=== PATIENT | female | born 1945 | race Caucasian/White ===

== ENCOUNTER 2022-06-21 10:57 | Inpatient (IN) | payer MEDICARE ==
[~2022-06-21] VITALS: Ht 167.6 cm; Wt 109.0 kg
[2022-06-21 11:37] LABS: BASO % 0.5 % (0.0-2.0); EOS # 0.1 K/mm3 (0.0-0.7); EOS % 0.7 % (0.0-4.0); GRAN # 7.5 K/mm3 (1.4-6.5); HEMATOCRIT 37.7 % (37.0-47.0); LYMPH # 0.7 K/mm3 (1.2-3.4); LYMPH % 7.8 % (20.0-51.0); MEAN CELL VOLUME 72 fl (80.0-100.0); MEAN CORPUSCULAR HEMOGLOBIN 21 pg (27-31); MEAN CORPUSCULAR HGB CONC 29 g/dl (33.0-37.0); MEAN PLATELET VOLUME 9.7 fl (7.4-10.4); MONO # 0.5 K/mm3 (0.1-0.6); MONO % 5.8 % (1.7-9.3); PLATELET COUNT 345 K/mm3 (130-400); RED BLOOD COUNT 5.25 M/mm3 (4.10-5.30); REDCELL DISTRIBUTION WIDTH-CV 23.9 % (11.5-14.5)
[2022-06-21 11:54] LABS: ALBUMIN 3.5 gm/dL (3.4-4.8); BILIRUBIN,TOTAL 0.4 mg/dL (0.2-1.2); CALCIUM 8.9 mg/dL (8.4-10.2); CREATININE, serum 0.98 mg/dL (0.57-1.11); POTASSIUM 3.6 mmol/L (3.5-4.5); TOTAL PROTEIN 6.7 gm/dL (6.2-8.1)
[2022-06-21 12:01] LABS: TROPONIN-I 2.607 ng/mL (0.00-0.033)
[2022-06-21 12:47] LABS: INR 1.2 (0.8-3.0); PROTHROMBIN TIME 13.3 SECONDS (9.7-12.8)
[2022-06-21 15:40] LABS: COLLECTION METHOD CATHETER
[2022-06-21 15:54] LABS: URINE APPEARANCE Clear (CLEAR/HAZY); URINE COLOR Yellow (YELLOW)
[2022-06-21 15:55] LABS: MUCOUS Present (NOT PRESENT); SQUAMOUS EPITHELIAL 0-2 /hpf (0-10); URINE BACTERIA None Seen /hpf (NONE SEEN); URINE BLOOD TRACE-INTACT (NEGATIVE); URINE GLUCOSE Negative (NEGATIVE); URINE KETONE Negative (NEGATIVE); URINE NITRATE Negative (NEGATIVE); URINE PROTEIN(semi-quant) 1+ (NEGATIVE); URINE RBC None Seen /hpf (0-2); URINE UROBILINOGEN 0.2 E.U/dL (0.2-1.0)
[2022-06-21 16:53] VITALS: BP 177/67; PULSE 83; TEMP 98.9
--- NOTE | 2022-06-21 17:02 | NUR ---
CALL PLACED TO FREDDY BURGESS IN ATTEMPT TO GET MORE PATIENT AND MED REC COMPLETE. NO ANSWER, VOICEMAIL LEFT FOR CALL BACK.
--- NOTE | 2022-06-21 17:48 | NUR ---
PATIENT ABLE TO SAY "THANK YOU", AND "WHAT IS THAT" WITH NO DIFFICULTY. HOWEVER WHEN TRYING TO SAY A FULL SENTENCE ONLY FEW WORDS SOUND NORMAL. UNABLE TO UNDERSTAND WHAT SHE IS STATING. SHE POINTS TO WHAT SHE IS SPEAKING OF, WHICH HELPS. HOWEVER MOST OF TIME I AM UNABLE TO UNDERSTAND. WHEN ASKED IF SHE KNOWS WHERE SHE IS, OR HEIGHT AND WEIGHT, SHE STATED "[place]", OR "OK". HOWEVER PATIENT ABLE TO FOLLOW COMMANDS.
--- NOTE | 2022-06-21 17:48 | NUR ---
PATIENT ABLE TO SWALLOW PILLS WITH NECTOR THICK LIQUID WITH NO DIFFICULTIES. NO COUGHING.
[2022-06-21 19:30] VITALS: BP 154/65; PULSE 80; TEMP 98.1
[2022-06-21 23:37] VITALS: BP 155/55; PULSE 61; TEMP 97.8
[2022-06-22 04:05] VITALS: BP 154/68; PULSE 68; TEMP 97.6
[2022-06-22 06:51] LABS: BASO # 0.1 K/mm3 (0.0-0.2); BASO % 0.6 % (0.0-2.0); EOS # 0.1 K/mm3 (0.0-0.7); EOS % 1.6 % (0.0-4.0); GRAN % 69.2 % (42.2-75.2); HEMATOCRIT 37.3 % (37.0-47.0); HEMOGLOBIN 10.8 g/dl (12.5-16.0); LYMPH # 1.6 K/mm3 (1.2-3.4); LYMPH % 18.1 % (20.0-51.0); MEAN CELL VOLUME 71 fl (80.0-100.0); MEAN CORPUSCULAR HEMOGLOBIN 20 pg (27-31); MEAN CORPUSCULAR HGB CONC 29 g/dl (33.0-37.0); MEAN PLATELET VOLUME 9.6 fl (7.4-10.4); MONO # 0.9 K/mm3 (0.1-0.6); PLATELET COUNT 387 K/mm3 (130-400); RED BLOOD COUNT 5.29 M/mm3 (4.10-5.30); REDCELL DISTRIBUTION WIDTH-CV 24.2 % (11.5-14.5)
[2022-06-22 07:28] VITALS: BP 142/76; PULSE 72; TEMP 98.3
[2022-06-22 07:32] LABS: ANION GAP 12 mmol/L (7-16); BLOOD UREA NITROGEN 24 mg/dL (10-20); CALCIUM 9.2 mg/dL (8.4-10.2); CARBON DIOXIDE 23 mmol/L (23-31); CHLORIDE 104 mmol/L (98-107); CHOLESTEROL 160 mg/dL (0-199); CHOLESTEROL RISK RATIO 3.2; CREATININE, serum 0.98 mg/dL (0.57-1.11); GLUCOSE 216 mg/dL (70-99); HDL CHOLESTEROL 50 mg/dL (40-60); LDL CHOLESTEROL 94 mg/dL; POTASSIUM 3.3 mmol/L (3.5-4.5); SODIUM 139 mmol/L (136-145); TRIGLYCERIDE 79 mg/dL (0-149)
--- NOTE | 2022-06-22 08:15 | NUR ---
ATTEMPTED TO HAVE PATIENT HER ANSWERS. SHE ATTEMPTED, HOWEVER NO WORD WRITTEN. ABLE TO ANSWER A FEW QUESTIONS WITH YES AND NO. HOWEVER DOESNT ALWAYS SEEM TO UNDERSTAND QUESTIONS ASKED. OBEYS COMMANDS.
--- NOTE | 2022-06-22 09:18 | NUR ---
PATIENTS DAUGHTER FREDDY CALLD FOR AN UPDATE ON PATIENT STATUS. SHE ASKED IF SHE DOESNT MAKE IT IN TIME FOR WHEN THE PHSYCIIAN ROUNDS THAT THE PHSYICIAN CALL AND UPDATE HER. WILL PASS ON IF NECESSARY.
--- NOTE | 2022-06-22 10:35 | NUR ---
20G IV placed to left forearm x1 attempt by this nurse. Tolerated out.
[2022-06-22 10:50] LABS: PARTIAL THROMBOPLASTIN TIME 35.9 SECONDS (26.0-37.0)
[2022-06-22 11:27] VITALS: BP 121/53; BP 160/63; PULSE 60; PULSE 65; TEMP 97.8; TEMP 98.6
--- NOTE | 2022-06-22 13:30 | NUR ---
PATIENT TOLERATED MECH SOFT DIET WITH NO ISSUES. DRINKING PO IN TAKE WELL WITH AND WITHOUT NECTOR THICK.
[2022-06-22] MEDS ORDERED: ZANAFLEX2 MG PO (13:34)
[2022-06-22] MEDS ORDERED: NEURONTIN100 MG/CAP PO (13:38)
[2022-06-22] MEDS ORDERED: LASIX 20MG TABL20 MG PO (13:39)
[2022-06-22] MEDS ORDERED: VITAMINC1000TA PO (13:40)
[2022-06-22] MEDS ORDERED: K-TAB20 PO (13:41)
[2022-06-22] MEDS ORDERED: B-121000 MCG PO (13:41)
[2022-06-22] MEDS ORDERED: COZAAR100 MG PO (13:42)
[2022-06-22] MEDS ORDERED: ASPIRIN 81M81 MG/TA2 PO (13:46)
[2022-06-22] MEDS ORDERED: VITAMIN D31000 IU PO (13:47)
[2022-06-22] MEDS ORDERED: NOVOLIN 70/30 710 ML SQ ×2 (14:03→14:04)
[2022-06-22 16:01] VITALS: BP 152/67; PULSE 67; TEMP 99.2
--- NOTE | 2022-06-22 16:58 | NUR ---
CALL RECIEVED FROM [facility] OF [facility] HEPARIN XA OF 1.64. PER PROTOCOL HEPARIN DRIP STOPPED. REDRAW ORDERED FOR 1900, 2 HOURS AFTER STOPPING DRIP ID PROTOCOL.
--- NOTE | 2022-06-22 18:18 | NUR ---
PATIENTS FAMILY REQUESTING NEOSPORIN FOR PATIENTS R PALM. ABRASIAN TO RIGHT PALM SEEN THIS MORNING, HOWEVER PATIENT ACCIDENTLY OPENED IT, TINY AREA OF BLOOD ON PALM. BANDAID APPLIED. DR GARCIA INFORMED ME SHE WAS WITH JOSE PERRIN FOR ORDERS. CALL PLACED TO FITNESS WORKER, SHE STATED THAT HER OR NIGHT HOUSE SUP WILL BRING AFTER SHIFT CHANGE.
[2022-06-22 19:21] VITALS: BP 155/65; PULSE 97; TEMP 97.7
--- NOTE | 2022-06-22 20:59 | NUR ---
BEDSIDE SHIFT REPORT RECEIVED FROM RN. PT CURRENTLY RESTING IN BED. NO C/O PAIN OR DISCOMFORT AT THIS TIME. LINES RUNNING ACCORDING TO REPORT (SEE DRIP FLOW SHEET). VSS, NO ACUTE NEURO CHANGES NOTED AT THIS TIME
[2022-06-22 23:34] VITALS: BP 146/61; PULSE 74; TEMP 97.8
[2022-06-23 04:01] VITALS: BP 151/65; PULSE 68; TEMP 98.6
[2022-06-23 06:23] LABS: HEMOGLOBIN 10.3 g/dl (12.5-16.0); MEAN CELL VOLUME 70 fl (80.0-100.0); MEAN CORPUSCULAR HEMOGLOBIN 20 pg (27-31); MEAN CORPUSCULAR HGB CONC 29 g/dl (33.0-37.0); MEAN PLATELET VOLUME 9.3 fl (7.4-10.4); PLATELET COUNT 330 K/mm3 (130-400); RED BLOOD COUNT 5.08 M/mm3 (4.10-5.30); REDCELL DISTRIBUTION WIDTH-CV 23.6 % (11.5-14.5)
[2022-06-23 06:29] LABS: HEMATOCRIT 35.4 % (37.0-47.0)
[2022-06-23 06:41] LABS: CALCIUM 8.9 mg/dL (8.4-10.2); CREATININE, serum 1.01 mg/dL (0.57-1.11); MAGNESIUM 2.3 mg/dL (1.6-2.6); POTASSIUM 3.9 mmol/L (3.5-4.5)
[2022-06-23 06:59] LABS: TROPONIN-I 2.22 ng/mL (0.00-0.033)
--- NOTE | 2022-06-23 07:25 | NUR ---
Critical troponin called to Dr. Quinn, who read back the results.
[2022-06-23 07:31] VITALS: BP 144/52; PULSE 67; TEMP 99.5
[2022-06-23 11:33] VITALS: BP 145/54; PULSE 64; TEMP 98.7
[2022-06-23 15:26] VITALS: BP 137/42; PULSE 56; TEMP 99
--- NOTE | 2022-06-23 19:26 | NUR ---
Patient has had an ok day. Shift assessment preformed. Scheduled medications given. Heparin gtt running as ordered. First dose of Sotalol given. This RN educated patient and family on new medications. Fall precautions placed on patient due to possible dizziness from new administration. Patient has expressive aphasia, but remainder of Neuro Check remains WNL. Daughter and grandaughter voiced their concerns to this RN, stating "We do not feel as if our mother is getting the care she needs. We don't think anyone is going in there except to pass medications. There is water all over the floor and poop smeared all over the toilet." This RN addressed their concerns, and oncoming nurse is aware. Patient is currently resting in bed. Fall precautions in place. Family at the bedside. Patient and family deny an further needs at thistime.
[2022-06-23 20:02] VITALS: BP 124/51; PULSE 58; TEMP 98.5
--- NOTE | 2022-06-23 22:20 | NUR ---
2025 PATIENT IS RESTING IN BED WITH FAMILY AT BEDSIDE. THIS NURSE ASSESSES PATIENT BRIEF AND MAKES READJUSTMENT AT THIS TIME. PATIENT FAMILY REQUEST A COMMUNICATION BOARD. PATIENT FAMILY STATES 'SHE IS TRYING TO TELL US TO DO SOMETHING BEFORE IT'S TOO LATE AND SHE IS UNABLE TO.' PATIENT FAMILY IS GIVEN A LAMINATED SHEET WITH EXPO MARKER. 2044 PATIENT FAMILY EXIT PATIENT ROOM AND INFORM THIS NURSE THE COMMUNICATION SHEET HELPED. PATIENT FAMILY EXPRESSES APPRECIATION FOR NURSE ATTENTIVENESS.
[2022-06-23 23:35] VITALS: BP 129/48; PULSE 57; TEMP 99.2
[2022-06-24 03:11] VITALS: BP 145/62; PULSE 74; TEMP 98.7
--- NOTE | 2022-06-24 05:33 | NUR ---
PATIENT SPEECH IMPROVING EVIDENCED BY PATIENT TALKING IN FULL SENTENCES. PATIENT HAS HAD UNEVENTFUL NIGHT AND DENIES NEEDS. PATIENT DOES EXPRESS WE WERE NOT BOTHERING HER SO MUCH SHE IS TRYING TO SLEEP. CALL LIGHT REMAINS IN REACH AND PATIENT IS APPROPRIATELY CALLING WITH NEEDS AND OR CONCERNS
[2022-06-24 06:46] LABS: MEAN CELL VOLUME 70 fl (80.0-100.0); MEAN CORPUSCULAR HGB CONC 29 g/dl (33.0-37.0); MEAN PLATELET VOLUME 10.6 fl (7.4-10.4); PLATELET COUNT 325 K/mm3 (130-400); RED BLOOD COUNT 4.79 M/mm3 (4.10-5.30); REDCELL DISTRIBUTION WIDTH-CV 23.6 % (11.5-14.5)
[2022-06-24 06:52] LABS: HEMATOCRIT 33.7 % (37.0-47.0); HEMOGLOBIN 9.9 g/dl (12.5-16.0); MEAN CORPUSCULAR HEMOGLOBIN 21 pg (27-31)
[2022-06-24 08:08] VITALS: BP 135/43; PULSE 60; TEMP 98.1
--- NOTE | 2022-06-24 08:51 | NUR ---
Pt assessment complete. Pt is sitting up on the side of the bed upon entry, she is alert but unable to answer orientation questions, she continues to answer with her name despite the question. When asked where she is she states "inside", and yes to her home. Pt becomes quite frustrated with attempts to answer questions, when empathy is given she states "no it's not alright". No pain at this time. Pt assisted in ambulating to the restroom with SBA and brushing her teeth. No needs at this time. Call light within reach and bed alarm in place.
[2022-06-24 11:42] VITALS: BP 127/40; PULSE 46; TEMP 98.1
--- NOTE | 2022-06-24 15:38 | NUR ---
SW met with patient to complete intake and discuss discharge plan. Patient reports that she lives in [facility] at home alone. She has been independent with her ADL's and does not utilize any DME to assist with mobility. Patient states that she cannot remember the name of her PCP and that i need to call her daughter for that information. She is unable to tell me where she gets her prescriptions from. Patient is unsure if she has a DPOA-HC.
[2022-06-24 17:13] VITALS: BP 119/48; PULSE 48; TEMP 98.4
--- NOTE | 2022-06-24 18:08 | NUR ---
Pt continued to have word salad through the day. Occasionally would answer questions appropriately but struggled with word finding. Able to make some of her needs known. Advanced to a general diet with regular liquids per ST. Pt continent of urine and bowel, refused shower today and said maybe tomorrow. Ambulated with assistance of SBA. No needs at this time. Heparin infusing per protocol.
[2022-06-24 19:47] VITALS: BP 132/50; PULSE 60; TEMP 97.4
--- NOTE | 2022-06-24 21:40 | NUR ---
Patient assessed around 2014. Denied having pain and discomfort. Peripheral IV to left forearm with Heparin drip running at 1850 units/hr. Recheck HepXa at 0500 per orders. Patient able to have conversation, able to understanding speach. When asking specific questions to patient, patient seems to get stuck on the last questions and have difficulty answering questions. Patient denies having any questions, needs, or concerns at time of assessment. High fall risk precautions in place, and bed alarm put on. Patient got upset asking why she needed an alarm on when staff help her to the bathroom. Explained to patient that sometimes people wake up confused and forget to call for assistance, and we do not want her to fall. Patient asked if alarm could be turned off because she doesn't wake up confused. Explained to patient that she is a high fall risk and that alarm had to be for her safety and to protect staff, as we need to follow those policies and procedures. Voiced understanding and allowed alarm to stay on. Patient in bed with call light within reach.
[2022-06-24 23:17] VITALS: BP 137/48; PULSE 55; TEMP 99.2
[2022-06-25 04:18] VITALS: BP 135/55; PULSE 51; TEMP 98.5
--- NOTE | 2022-06-25 05:52 | NUR ---
Patient has denied pain and discomfort this shift. Did seem to get frustrated this morning with not being able to speak clearly. Patient was trying to say that she wanted a drink but kept saying eat. This nurse held up a drink in one had and food in another and asked patient to point to one depending on if she wanted food or drink. Pointed to drink. Was then able to figure out what she wanted. This nurse thanked patient for being patient, and gave words of encouragement for doing a good job and not giving up on trying to make needs known. Says no when asked if she needed anything else. In bed with call light within reach. High fall risk precautions in place. Continues on Heparin drip per orders.
[2022-06-25 06:27] LABS: MEAN CELL VOLUME 73 fl (80.0-100.0); MEAN CORPUSCULAR HGB CONC 30 g/dl (33.0-37.0); MEAN PLATELET VOLUME 10.1 fl (7.4-10.4); PLATELET COUNT 324 K/mm3 (130-400); RED BLOOD COUNT 4.58 M/mm3 (4.10-5.30); REDCELL DISTRIBUTION WIDTH-CV 23.4 % (11.5-14.5)
[2022-06-25 06:31] LABS: HEMATOCRIT 33.2 % (37.0-47.0); HEMOGLOBIN 9.8 g/dl (12.5-16.0); MEAN CORPUSCULAR HEMOGLOBIN 21 pg (27-31)
[2022-06-25 06:45] LABS: CALCIUM 9.2 mg/dL (8.4-10.2); CREATININE, serum 1.36 mg/dL (0.57-1.11); POTASSIUM 3.8 mmol/L (3.5-4.5)
[2022-06-25 07:24] VITALS: BP 145/62; PULSE 50; TEMP 97.9
[2022-06-25 12:01] VITALS: BP 142/39; PULSE 50; TEMP 97.7
[2022-06-25 16:05] LABS: HEMOGLOBIN 10.3 g/dl (12.5-16.0); MEAN CELL VOLUME 71 fl (80.0-100.0); MEAN CORPUSCULAR HEMOGLOBIN 21 pg (27-31); MEAN CORPUSCULAR HGB CONC 29 g/dl (33.0-37.0); PLATELET COUNT 365 K/mm3 (130-400); RED BLOOD COUNT 5.02 M/mm3 (4.10-5.30); REDCELL DISTRIBUTION WIDTH-CV 23.6 % (11.5-14.5)
[2022-06-25 16:07] LABS: HEMATOCRIT 35.4 % (37.0-47.0)
[2022-06-25 16:16] VITALS: BP 135/50; PULSE 58; TEMP 97.5
--- NOTE | 2022-06-25 16:22 | NUR ---
Television Specialist met with patient's daughter, Lisa and granddaughter to discuss discharge planning. They are agreeable to post acute rehab. SW provided Medicare.gov list of SNF options. Preferences are [facility]) [facility] and 3) [facility]. TREMAINE faxed off clinicals to [facility] for authorization. [facility] declined referral and [facility] advised they will follow as patient had some difficulties today. Jose at [facility] is full but will continue to review referral and determine if/whey they could take.
[2022-06-25 20:18] VITALS: BP 120/53; PULSE 55; TEMP 98
--- NOTE | 2022-06-25 21:45 | NUR ---
Patient assessed around 2024. Denied pain and discomfort. Continues on IV fluids and Heparin drip per orders. Continues to have difficulty with speech/expressing wants and needs. Patient denies having any questions, needs, or concerns at this time. In bed with call light within reach. High fall risk precautions in place. Bed alarm on.
[2022-06-25 23:10] VITALS: BP 122/42; PULSE 56; TEMP 98
[2022-06-26] VITALS (9 sets, daily range): BP systolic 136–165; BP diastolic 40–60; PULSE 47–56; TEMP 97.9–98.7
--- NOTE | 2022-06-26 05:41 | NUR ---
Patient has been NPO since midnight, except took medications with sips of water, for heart cath today. Voices no questions, needs, or concerns at this time. In bed with call light within reach. High fall risk precautions inplace.
[2022-06-26 05:57] LABS: MEAN CELL VOLUME 72 fl (80.0-100.0); MEAN CORPUSCULAR HGB CONC 30 g/dl (33.0-37.0); MEAN PLATELET VOLUME 10.3 fl (7.4-10.4); PLATELET COUNT 294 K/mm3 (130-400); RED BLOOD COUNT 4.65 M/mm3 (4.10-5.30); REDCELL DISTRIBUTION WIDTH-CV 23.6 % (11.5-14.5)
[2022-06-26 06:12] LABS: CALCIUM 8.7 mg/dL (8.4-10.2); CREATININE, serum 1.24 mg/dL (0.57-1.11); POTASSIUM 3.7 mmol/L (3.5-4.5)
[2022-06-26 06:19] LABS: HEMATOCRIT 33.5 % (37.0-47.0); HEMOGLOBIN 9.9 g/dl (12.5-16.0); MEAN CORPUSCULAR HEMOGLOBIN 21 pg (27-31)
[2022-06-26 06:23] LABS: INR 1.3 (0.8-3.0); PROTHROMBIN TIME 14.8 SECONDS (9.7-12.8)
[2022-06-26 06:32] LABS: TROPONIN-I 0.854 ng/mL (0.00-0.033)
[2022-06-26 06:41] LABS: PARTIAL THROMBOPLASTIN TIME 124.3 SECONDS (26.0-37.0)
--- NOTE | 2022-06-26 15:25 | NUR ---
See merge for all medication, assessment, intervention, and vital sign times.
--- NOTE | 2022-06-26 15:40 | NUR ---
Cra Officer gave referral to [facility]. SW met with patient, daughter, and granddaughter to provide update on referrals. They are disappointed [facility] cannot accept, however would be agreeable to [facility]. SW was contacted by [facility] and a peer to peer was requested. SW notified Hospitalist. SW updated daughterLisa that a peer to peer was requested, which could mean denial for post acute rehab.
--- NOTE | 2022-06-26 16:00 | NUR ---
PATIENT ARRIVED FROM [facility]. T BAND INTACT, NO BLEEDING. PATIENT AWAKE AND ALERT. FLUIDS HOOKED UP. VITALS STABLE, POST OP VITALS INITIATED.
--- NOTE | 2022-06-26 16:12 | NUR ---
[facility] can accept tomorrow with insurance approval.
[2022-06-27 00:20] VITALS: BP 119/53; PULSE 49; TEMP 97.9
[2022-06-27 04:23] VITALS: BP 155/55; PULSE 58; TEMP 98.3
[2022-06-27 06:58] LABS: POTASSIUM 4.1 mmol/L (3.5-4.5)
[2022-06-27 07:38] VITALS: BP 154/57; PULSE 51; TEMP 98.1
[2022-06-27] MEDS ORDERED: LIPITOR 80MG80 MG PO (09:01)
[2022-06-27] MEDS ORDERED: ELIQUIS 5MG PO (09:01)
[2022-06-27 09:02] LABS: BASO # 0.1 K/mm3 (0.0-0.2); BASO % 0.7 % (0.0-2.0); EOS # 0.2 K/mm3 (0.0-0.7); EOS % 2.3 % (0.0-4.0); GRAN # 5.5 K/mm3 (1.4-6.5); GRAN % 72.9 % (42.2-75.2); LYMPH # 1.2 K/mm3 (1.2-3.4); LYMPH % 15.4 % (20.0-51.0); MEAN CELL VOLUME 72 fl (80.0-100.0); MEAN CORPUSCULAR HEMOGLOBIN 21 pg (27-31); MEAN CORPUSCULAR HGB CONC 29 g/dl (33.0-37.0); MONO # 0.6 K/mm3 (0.1-0.6); MONO % 8.4 % (1.7-9.3); PLATELET COUNT 303 K/mm3 (130-400); RED BLOOD COUNT 4.81 M/mm3 (4.10-5.30); REDCELL DISTRIBUTION WIDTH-CV 23.9 % (11.5-14.5)
[2022-06-27] MEDS ORDERED: BETAPACE 120MG120 MG PO (09:02)
[2022-06-27 09:03] LABS: HEMATOCRIT 34.5 % (37.0-47.0)
[2022-06-27 09:25] LABS: CALCIUM 8.8 mg/dL (8.4-10.2); CREATININE, serum 1.17 mg/dL (0.57-1.11)
[2022-06-27 11:15] VITALS: BP 147/59; PULSE 55; TEMP 98
--- NOTE | 2022-06-27 13:46 | NUR ---
Primary nurse was assisted with [phone] patient care by [employer] student Ana Flores and [employer] ADN instructor Mayra Mtz RN-JACKIE.
--- NOTE | 2022-06-27 14:10 | NUR ---
PATIENT DID NOT WANT REVIEW DISCHARGE INSTRUCTINOS OR MEDICATIONS. EVERYTHING REVIEWED WITH PATIENT, HOWEVER SHE KEPT INSISTING TO TALK TO HER "PERSON." ALL DISCHARGE EDUCATION, MEDICATION AND ISNTRUCTIONS REVIEWED WITH PATIENTS FRIEND/NEIGHBOR JUAN. SHE VERBALIZED UNDERSTANDING. PATIENT LEFT IN STABLE CONDITION WITH ALL BELONGSINGS. TELE AND IV REMOVED PRIOR TO DISCHARGE
--- NOTE | 2022-06-27 14:43 | NUR ---
Physician In Private Practice spoke with KLAUDIA Scott who completed peer to peer. Authorization has been denied. There is the option to resubmit but Sonia advised the medical claims assistant stated he would likely not approve unless patient had a significant decline, which she hasn't. TREMAINE attended clinical rounds with the team and patient to discharge home today with Home Health. TREMAINE met with patient and her daughter, Lisa to provide update. Lisa expressed some frustration but is understanding of the situation. Patient is agreeable to return home today. Lisa advised patient's neighbor, Marylu will take patient home today as Lisa has to return to [place] for work. Plan will be for Lisa to return early July to sweet pickle maker patient and move her to [place]. Lisa reports that Marylu will be available to help with transportation, laundry and any other things patient may need. TREMAINE presented Medicare.gov list of agencies and patient selected [facility]. Patient will also need a front wheeled walker and would like it ordered from [facility]. TREMAINE contacted Jp at [facility] and faxed referral with orders. Jp advised they can accept patient. Orders were sent for PT/OT/ST/Nursing. TREMAINE contacted [facility] and faxed referral and order for FWW. TREMAINE coordinated with patient's neighbor, Marylu who will sweet pickle maker FWW on their way home. TREMAINE provided the address and phone number for [facility]. Discharge Plan: Home with [facility]
== END 2022-06-27 14:10 | disposition home health service (06) | DRG 40 ==
LOC: COL.ER 10:57 → MEDICAL 15:01
PROVIDERS: Internal Medicine; Internal Medicine Adult Congenital Heart Disease; Nurse Practitioner Family; Physician Assistant; ADMIT Internal Medicine
PROC: 0JH602Z Insertion of Monitoring Device into Chest Subcutaneous Tissue and Fascia, Open Approach (ICD-10-PCS; principal; 2022-06-25)
PROC: B2111ZZ Fluoroscopy of Multiple Coronary Arteries using Low Osmolar Contrast (ICD-10-PCS; 2022-06-26)
PROC: 4A023N7 Measurement of Cardiac Sampling and Pressure, Left Heart, Percutaneous Approach (ICD-10-PCS; 2022-06-26)
DX: I63.9 Cerebral infarction, unspecified (principal); I21.A1 Myocardial infarction type 2; I50.21 Acute systolic (congestive) heart failure; N17.9 Acute kidney failure, unspecified; F41.9 Anxiety disorder, unspecified; G47.33 Obstructive sleep apnea (adult) (pediatric); E78.5 Hyperlipidemia, unspecified; M19.90 Unspecified osteoarthritis, unspecified site; E11.9 Type 2 diabetes mellitus without complications; I44.0 Atrioventricular block, first degree; I08.0 Rheumatic disorders of both mitral and aortic valves; R47.01 Aphasia; Z20.822 Contact with and (suspected) exposure to COVID-19; I65.01 Occlusion and stenosis of right vertebral artery; I48.0 Paroxysmal atrial fibrillation; I11.0 Hypertensive heart disease with heart failure; I25.10 Atherosclerotic heart disease of native coronary artery without angina pectoris; R29.700 NIHSS score 0; Z88.1 Allergy status to other antibiotic agents; Z85.41 Personal history of malignant neoplasm of cervix uteri; Z23 Encounter for immunization
CPT/HCPCS: 99222-AI; 99231-AI; 99232-AI; 99233-AI; A9575; C1764; C1769; J1644; J1650; J1815; J1940; J2060; J2250; J3010; J7030; Q9967